=== PATIENT | female | born 1980 ===

== ENCOUNTER 2020-04-14 10:00 | Outpatient (RCR) | payer OTHER, SELFPAY ==
--- NOTE | 2020-03-17 10:27 | MHC.PT.EP ---
[facility] [place] Office [place] Office [place] Office [address] Emi Espinoza [address] [phone] F: [phone] F: [phone] F: [phone] F: [phone] Physical Therapy Plan of Care Date of Evaluation: 03/17/20 Date of Surgery: N/A Diagnosis: M48.061 spinal stenosis of lumbar region without neurogenic claudication Assessment: pt presents to physical therapy with pain, decreased range of motion, decreased strength, impaired functional mobility, impaired postural awareness, and gait deviations. pt is a good candidate for skilled PT due to age, potential remediation of impairments, typical disease/condition progression and prognosis, comorbidities, and motivation. pt would benefit from tailored strengthening and stretching exercise program, functional training, gait training, postural re-training, neuromuscular re-education, and modalities as needed for pain. Frequency and Duration: The patient will be seen 2x/wk for 5 wks Short Term Goals: pt will be min A w/ HEP d/t L hand impairments to promote self-management of condition. pt will improve lumbar flexion by 15% to facilitate ease in reaching for objects on the ground. Mcfp Goals: pt will report statistically significant improvement in self-reported outcome measure, Chuck, to facilitate return to PLOF. pt will report <1/10 low back pain w/ standing for >30 min to facilitate return to ADLs. Treatment Plan: Modalities to reduce pain, spasms and effusion. Manual therapy to restore motion and function. Therapeutic exercise to improve strength and flexibility. Neuromuscular re-education for posture and balance. Therapeutic activities to return to functional activities of daily living. Please sign and return to therapist. Thank you for your referral.
--- NOTE | 2020-04-14 10:57 | MHC.PT.EP ---
[facility] [place] Office [place] Office [place] Office [address] Emi Espinoza [address] [phone] F: [phone] F: [phone] F: [phone] F: [phone] Physical Therapy Plan of Care Date of Evaluation: 04/14/20 Date of Surgery: N/A Diagnosis: M48.061 spinal stenosis of lumbar region without neurogenic claudication Assessment: pt presents to physical therapy with pain, decreased range of motion, decreased strength, impaired functional mobility, impaired postural awareness, and gait deviations. pt is a good candidate for skilled PT due to age, potential remediation of impairments, typical disease/condition progression and prognosis, comorbidities, and motivation. pt would benefit from tailored strengthening and stretching exercise program, functional training, gait training, postural re-training, neuromuscular re-education, and modalities as needed for pain. Frequency and Duration: The patient will be seen 2x/wk for 5 wks Short Term Goals: pt will be min A w/ HEP d/t L hand impairments to promote self-management of condition. - GOAL MET pt will improve lumbar flexion by 15% to facilitate ease in reaching for objects on the ground. 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 - reported 11% decrease in disability pt will report <1/10 low back pain w/ standing for >30 min to facilitate return to ADLs. Treatment Plan: Modalities to reduce pain, spasms and effusion. Manual therapy to restore motion and function. Therapeutic exercise to improve strength and flexibility. Neuromuscular re-education for posture and balance. Therapeutic activities to return to functional activities of daily living. Please sign and return to therapist. Thank you for your referral.
--- NOTE | 2020-04-14 10:58 | MHC.PT.DC ---
[facility] [place] Office [place] Office [place] Office [address] Espinoza [address] [phone] F: [phone] F: [phone] F: [phone] F: [phone] Physical Therapy Discharge Report Diagnosis: M48.061 spinal stenosis of lumbar region without neurogenic claudication Date of Surgery: N/A Date of Evaluation: 03/17/20 Date of Discharge: 04/14/20 Treatments to Date: 8 Cancellations to Date: 0 No Shows to Date: 2 Discharge Status: Improved Function Independent with HEP Discharge Summary: The patient has improved in overall strength, endurance, and tolerance of therapeutic exercises and activities. She reported overall she still experiences pain but the severity is less. She is independent with her home exercise program. She is discharged from this physical therapy plan of care. Electronically signed by: Ladan Piedra PT, DPT Please sign and return to therapist. Thank you for your referral.
== END 2020-04-14 10:58 | disposition other institution (70) ==
LOC: HO.PT 10:00
PROVIDERS: Visit Provider Physician Assistant
DX: M48.061 Spinal stenosis, lumbar region without neurogenic claudication (principal)
CPT/HCPCS: 97110; 97140; 97161; 97530

== ENCOUNTER → 2020-12-17 09:02 | Outpatient (BNVA) | payer OTHER, SELFPAY | PROVIDERS: Visit Provider Advanced Practice Midwife ==

== ENCOUNTER 2021-01-05 10:52 | Outpatient (REF) | payer OTHER, SELFPAY ==
--- NOTE | ~2021-01-05 | US_ITS ---
EXAMINATION: US PELVIS CLINICAL INFORMATION: Excessive menstruation. COMPARISON: None TECHNIQUE: Ultrasound of the pelvis is performed using both transabdominal with Doppler. Patient refuses transvaginal study. FINDINGS: The uterus is 8.8 x 5 x 5.4 cm. Anteverted. The endometrial thickness is measured at 1.9 cm. Appears echogenic. The right ovary is 2 x 1.8 x 1.1 cm. Normal-appearing. The left ovary is 2.7 x 1.2 x 1.9 cm. Small simple-appearing 1.1 x 1.1 cm cyst associated. US/US pelvic and transvaginal IMPRESSION: Transabdominal only. Patient refuses transvaginal study. The endometrium is thickened here at 1.9 cm. This could be normal for a very late phase of the cycle but otherwise hyperplasia or polyp formation would need to be considered here. Recommend gynecologic consultation.
[2021-01-05 12:10] LABS: Hematocrit 38.3 % (37-47); Hemoglobin 12.2 g/dl (12.0-16.0); Mean Corpuscular HGB Conc 31.9 g/dl (31.0-35.0); Mean Corpuscular Hemoglobin 26.2 pg (27.0-33.0); Mean Corpuscular Volume 82.2 fL (80-98); Platelet Count 320 X10*3/uL (160-400); Red Blood Count 4.66 X10*6/uL (4.20-5.50); Red Cell Distribution Width 13.3 % (11.0-16.0); White Blood Count 8.2 X10*3/uL (4.8-10.8)
[2021-01-05 12:51] LABS: Thyroid Stimulating Hormone 2.09 uIU/mL (0.32-4.0)
== END 2021-01-05 10:53 | disposition home or self-care (01) ==
LOC: HO.US 10:52
PROVIDERS: PCP Physician Assistant; Visit Provider Advanced Practice Midwife
DX: N92.0 Excessive and frequent menstruation with regular cycle (principal); N92.1 Excessive and frequent menstruation with irregular cycle
CPT/HCPCS: 36415; 76830; 76856; 84443; 85027

== ENCOUNTER → 2021-01-12 15:44 | Outpatient (BNVA) | payer OTHER, SELFPAY | PROVIDERS: Visit Provider Advanced Practice Midwife | CPT/HCPCS: Q3014 ==

== ENCOUNTER 2021-01-31 08:41 | Outpatient (REF) | payer OTHER, SELFPAY ==
[2021-01-31 16:23] LABS: CT PCR NOT DETECTED (Not Detect.); NG PCR NOT DETECTED (Not Detect.)
== END 2021-01-31 08:42 | disposition home or self-care (01) ==
LOC: CF 08:41
PROVIDERS: Visit Provider Obstetrics & Gynecology
DX: N92.0 Excessive and frequent menstruation with regular cycle (principal); Z87.891 Personal history of nicotine dependence
CPT/HCPCS: 87491; 87591; 99212

== ENCOUNTER 2021-02-04 09:00 | Day surgery (SDC) | payer OTHER, SELFPAY ==
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
[2021-02-04] VITALS (8 sets, daily range): BP systolic 108–133; BP diastolic 63–69; PULSE 65–88; RESP 16–18; TEMP 36.2–36.6; O2SAT 96–100; BMI 36.4
[2021-02-04 09:35] LABS: UPreg QC Valid YES; Urine Pregnancy NEGATIVE (NEGATIVE)
[2021-02-04] MEDS: Lactated Ringers 1,000 ML 100 ML IVCONT (09:41)
--- NOTE | 2021-02-04 09:57 | MHC.SHP ---
Pre-Procedural Eval Section A Date of Service: 02/04/21 The patient is an INPATIENT: No Changes since office visit: No Cold of Flu in the past 2 weeks, No New Medical Problems, No Changes in Medication and No Patient answered all questions The History & Physical has been completed within 30 days and I have reviewed it.: Yes Section B Chief Complaint: bleeding Allergies: Allergies Allergy/AdvReac Type Severity Reaction Status Date / Time No Known Allergies Allergy Verified 01/31/21 11:17 Plan Diagnosis/Plan: Unchanged I have reviewed the history and physical and performed a pertinent physical examination on my patient. No changes have occurred unless specified.
--- NOTE | 2021-02-04 10:48 | PM.OP ---
Brief Operative Note Date of Service: 02/04/21 Pre-op diagnosis: Menometrorrhagia Post-op diagnosis: same (Menometrorrhagia, endometrial polyp) Procedure: Hysteroscopy D&C, Polypectomy Surgeon: Sushil Velasquez MD Anesthesia: MAC Was an Paper Machine Supervisor used for this Procedure?: No Estimated blood loss (mL): 0 Pathology: other (Endometrial Scrapping. Polyp) Condition: stable Disposition: PACU
--- NOTE | 2021-02-04 10:49 | W.PM.OPN ---
Operative Note Operative Note Date of Service: 02/04/21 Narrative: Preop Diagnosis: Menometrorrhagia Operation: Diagnostic Hysteroscopy, Dilataion & Curettage and polypectomy Post Op Diagnosis: Menometrorrhagia, Endometrial Polyp QBL: Minimal Anesthesia: MAC Surgeon: Sushil Velasquez MD Mechanical Intern: None Complication: None Pathology: Endometrial Scrapings, Endometrial polyp Complication: None Pathology: Endometrial Scrapings, Endometrial polyp Procedure: The patient was put in the dorsal lithotomy position, scrubbed, and draped in the usual manner. A sterile speculum was inserted in the patient's vagina. The anterior lip of the cervix was grasped with a single tooth tenaculum. The cervix was dilated up to 5 mm, then the scope was inserted in the patient's uterus. Inspection revealed endometrial polyp. The Myosure Light device was used; it was introduced through the operative channel and polypectomy done with no complications. At the end of the procedure, all instruments were taken out of the patient uterine and vaginal cavity. The single tooth tenaculum was removed and homeostasis was assured using pressure,. The patient tolerated the procedure well and was transferred to the PACU in a stable condition.
[2021-02-04] MEDS: Acetaminophen 325 MG TABLET 650 MG PO (11:10)
[2021-02-04] MEDS: Ketorolac Tromethamine 15 MG/ML VIAL IVPUSH (11:10)
[2021-02-04] MEDS: oxyCODONE HCl Immed Release 5 MG TABLET PO (11:10)
== END 2021-02-04 12:12 | disposition home or self-care (01) ==
PROVIDERS: PCP Physician Assistant; Visit Provider Obstetrics & Gynecology
PROC: 0UDB8ZZ Extraction of Endometrium, Via Natural or Artificial Opening Endoscopic (ICD-10-PCS; CPT 58558; principal; 2021-02-04 10:40)
DX: N92.0 Excessive and frequent menstruation with regular cycle (principal); N84.0 Polyp of corpus uteri; N83.292 Other ovarian cyst, left side; N85.4 Malposition of uterus; Z98.51 Tubal ligation status; Z87.891 Personal history of nicotine dependence
CPT/HCPCS: 58558; 81025; 88305; J1100; J1885; J2250; J2405; J3010

== ENCOUNTER → 2021-02-17 12:46 | Outpatient (BNVA) | payer OTHER, SELFPAY | PROVIDERS: Visit Provider Obstetrics & Gynecology | DX: Z48.816 Encounter for surgical aftercare following surgery on the genitourinary system (principal); Z90.710 Acquired absence of both cervix and uterus | CPT/HCPCS: 99212 ==

== ENCOUNTER 2021-03-09 09:03 | Outpatient (REF) | payer OTHER, SELFPAY ==
--- NOTE | ~2021-03-09 | MM_ITS ---
EXAMINATION: MM SCREENING DIGITAL BREAST TOMOSYNTHESIS, BILATERAL CLINICAL INFORMATION: Screening. Asymptomatic. The lifetime risk of breast cancer based on the Tyrer-Cuzick Model is 8%. COMPARISON: Mammography: 02/05/2019, outside mammography 05/06/2017 ([place], [place]). TECHNIQUE: Digital breast tomosynthesis is performed in both the craniocaudal and mediolateral oblique views along with computer-aided detection (CAD). Synthesized 2D images are generated from the tomosynthesis. FINDINGS: There are scattered areas of fibroglandular density (ACR BI-RADS breast composition Category b). There are no significant masses, abnormal calcifications, or other abnormalities. Parenchymal pattern is similar to prior exam. There is no developing density or architectural abnormality. Skin contours are smooth. MM/MM tomosynthesis screening BI IMPRESSION: No mammographic evidence of malignancy. ASSESSMENT: BI-RADS 1: Negative RECOMMENDATION: Routine annual mammography screening. This patient's information was entered into a reminder system with a target due date for their next mammogram.
== END 2021-03-09 09:04 | disposition home or self-care (01) ==
LOC: HO.MAMMO 09:03
PROVIDERS: Visit Provider Physician Assistant
DX: Z12.13 Encounter for screening for malignant neoplasm of small intestine (principal)
CPT/HCPCS: 77063; 77067

== ENCOUNTER → 2021-07-28 11:57 | Outpatient (BNVA) | payer OTHER, SELFPAY | PROVIDERS: PCP Physician Assistant; Referring Provider Physician Assistant; Visit Provider Physician Assistant | DX: Z83.71 Family history of colonic polyps (principal) | CPT/HCPCS: 99202 ==

== ENCOUNTER 2021-08-30 08:06 | Day surgery (SDC) | payer OTHER, SELFPAY ==
[2021-08-25 10:51] VITALS: BMI 36.8
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
[2021-08-30 09:31] VITALS: BP 117/60; PULSE 86; RESP 16; TEMP 36.2; O2SAT 97
[2021-08-30] MEDS: Lactated Ringers 1,000 ML 100 ML IVCONT (09:51)
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
--- NOTE | 2021-08-30 10:49 | PM.OP ---
Brief Operative Note Date of Service: 08/30/21 Pre-op diagnosis: screening colonoscopy Post-op diagnosis: same Procedure: see op note Surgeon: Iman Olson MD Anesthesia: MAC Was an Special Education Supervisor used for this Procedure?: No Estimated blood loss (mL): 0 Condition: stable Disposition: PACU
--- NOTE | 2021-08-30 10:49 | W.PM.OPN ---
Operative Note Operative Note Date of Service: 08/30/21 Narrative: Operative Information Procedure Description: Colonoscopy Indication: screening colonoscopy, higher risk due to FH of polyps Anesthesia: MAC COLONOSCOPY Instrument: Olympus variable stiffness pediatric scope 190L Colonoscopy Monitoring: Vital signs and clinical assessment, continuous EKG monitoring, Pulse oximetry, Carbon Dioxide monitoring and blood pressure monitoring were done throughout the procedure. Colon withdrawal time was 14 minutes. Procedure: The patient was placed in the RIGHT lateral decubitis position due to arm deformity and pre-procedure medications were administered. After a digital rectal examination of the ano-rectum, the video colonoscope was inserted into the rectum and advanced through the colon to the cecum/TI. The colonoscope was slowly withdrawn in a retrograde panoramic fashion and the colon mucosa was carefully examined including a retroflexed view of the rectum. Findings and interventions are described below. Procedure Difficulty: easy Findings: Terminal Ileum-normal, bx taken Cecum: many prominent lymphoid follicles noted, bx taken due to this Ascending Colon: 10-12 mm sessile polyp removed with cold snare and x 1 clip for hemostasis Transverse Colon -normal Descending Colon:normal Sigmoid Colon: normal Rectum: Retroflexion with small internal hemorrhoids, grade I Anorectum - normal Colon preparation: [place] Bowel Preparation Scale Right colon; 3 Transverse colon: 2 Left colon; 2 (0 = Unprepared colon segment with mucosa not seen due to solid stool that cannot be cleared. 1 = Portion of mucosa of the colon segment seen, but other areas of the colon segment not well seen due to staining, residual stool and/or opaque liquid. 2 = Minor amount of residual staining, small fragments of stool and/or opaque liquid, but mucosa of colon segment seen well. 3 = Entire mucosa of colon segment seen well with no residual staining, small fragments of stool or opaque liquid) Impression and Post Procedure Diagnosis: polyp internal hemorrhoids prominent lymhoid follicles cecum Plan: High fiber diet leaflet Avoid straining at stool, epsom salts and sitz bath, anusol supps or cream Repeat Colonoscopy in 5 years due to FH of polyps or earlier if clinically indicated Above findings were reviewed with the patient and relevant handouts were provided if indicated.
[2021-08-30 11:16] VITALS: BP 98/56; PULSE 84; RESP 16; TEMP 36.1; O2SAT 97
[2021-08-30 11:31] VITALS: BP 110/65; PULSE 75; RESP 16; O2SAT 98
[2021-08-30 11:46] VITALS: BP 124/82; PULSE 77; RESP 16; TEMP 36.1; O2SAT 96
== END 2021-08-30 12:27 | disposition home or self-care (01) ==
PROVIDERS: PCP Physician Assistant; Visit Provider Internal Medicine Gastroenterology
PROC: 0DJD8ZZ Inspection of Lower Intestinal Tract, Via Natural or Artificial Opening Endoscopic (ICD-10-PCS; CPT 45378; principal; 2021-08-30 10:10)
DX: Z12.11 Encounter for screening for malignant neoplasm of colon (principal); Z83.71 Family history of colonic polyps; D12.2 Benign neoplasm of ascending colon; K63.89 Other specified diseases of intestine; K64.0 First degree hemorrhoids; K21.9 Gastro-esophageal reflux disease without esophagitis; Z79.899 Other long term (current) drug therapy; Z79.1 Long term (current) use of non-steroidal anti-inflammatories (NSAID); Z98.890 Other specified postprocedural states; Z87.891 Personal history of nicotine dependence
CPT/HCPCS: 45385; 45380; 88305

== ENCOUNTER → 2021-09-14 11:25 | Outpatient (BNVA) | payer OTHER, SELFPAY | PROVIDERS: PCP Physician Assistant; Referring Provider Physician Assistant; Visit Provider Physician Assistant | DX: D12.2 Benign neoplasm of ascending colon (principal); K64.9 Unspecified hemorrhoids; Z98.890 Other specified postprocedural states | CPT/HCPCS: 99212 ==

== ENCOUNTER 2022-03-16 09:48 | Outpatient (REF) | payer OTHER, SELFPAY ==
--- NOTE | ~2022-03-16 | MM_ITS ---
EXAMINATION: MM SCREENING DIGITAL BREAST TOMOSYNTHESIS, BILATERAL CLINICAL INFORMATION: Screening. Asymptomatic. The lifetime risk of breast cancer based on the Tyrer-Cuzick Model is 8.6%. COMPARISON: Mammography: March 09, 2021 and studies dating back to May 10, 2017 TECHNIQUE: Digital breast tomosynthesis is performed in both the craniocaudal and mediolateral oblique views along with computer-aided detection (CAD). Synthesized 2D images are generated from the tomosynthesis. FINDINGS: The breasts are heterogeneously dense, which may obscure small masses (ACR BI-RADS breast composition Category c). There are no significant masses, abnormal calcifications, or other abnormalities. MM/MM tomosynthesis screening BI IMPRESSION: No significant changes from prior exam. ASSESSMENT: BI-RADS 1: Negative RECOMMENDATION: Routine annual mammography screening. This patient's information was entered into a reminder system with a target due date for their next mammogram.
== END 2022-03-16 09:49 | disposition home or self-care (01) ==
LOC: HO.MAMMO 09:48
PROVIDERS: PCP Physician Assistant; Visit Provider Physician Assistant
DX: Z12.31 Encounter for screening mammogram for malignant neoplasm of breast (principal)
CPT/HCPCS: 77063; 77067

== ENCOUNTER 2022-07-31 17:36 | Emergency (ER) | payer OTHER, SELFPAY ==
[2022-07-31 18:34] VITALS: BP 120/66; PULSE 76; RESP 18; TEMP 36.4; O2SAT 98; BMI 35.8
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
== END 2022-07-31 18:44 | disposition home or self-care (01) ==
PROVIDERS: Emergency Provider Emergency Medicine Emergency Medical Services; PCP Physician Assistant
DX: S01.85XA Open bite of other part of head, initial encounter (principal); W54.0XXA Bitten by dog, initial encounter; Y93.9 Activity, unspecified; Y92.9 Unspecified place or not applicable; Y99.9 Unspecified external cause status; Z79.899 Other long term (current) drug therapy
CPT/HCPCS: 99282; 99283

== ENCOUNTER 2022-11-14 07:14 | Outpatient (REF) | payer OTHER, SELFPAY ==
[2022-11-14 08:58] LABS: Alanine Aminotransferase 36 U/L (0-31); Albumin Level 4.1 g/dL (3.5-5.0); Alkaline Phosphatase 83 U/L (39-117); Anion Gap 12 (12-20); Aspartate Amino Transferase 29 U/L (5-31); Bilirubin Total 0.4 mg/dL (0.0-1.0); Blood Urea Nitrogen 11 mg/dL (9-16); Calcium 9.4 mg/dL (8.4-10.2); Carbon Dioxide 22 mmol/L (22-29); Chloride 109 mmol/L (96-108); Estimated Glomerular Filt Rate > 60; Glucose Fasting 87 mg/dL (60-99); Potassium 3.6 mmol/L (3.3-5.1); Sodium 139 mmol/L (135-145); Total Protein 7.9 g/dL (6.5-8.0)
[2022-11-14 09:14] LABS: Vitamin D 25-OH Total 21.2 ng/mL (>30)
[2022-11-14 09:18] LABS: Folate 8.8 ng/mL (> or = 4.0); Vitamin B12 312 pg/mL (200-900)
[2022-11-18 13:23] LABS: Vitamin B1 8 nmol/L (8-30)
== END 2022-11-14 07:15 | disposition home or self-care (01) ==
LOC: HO.LAB 07:14
PROVIDERS: Visit Provider Nurse Practitioner Family
DX: R20.0 Anesthesia of skin (principal); Z13.21 Encounter for screening for nutritional disorder
CPT/HCPCS: 36415; 80053; 82306; 82607; 82746; 84425

== ENCOUNTER 2022-12-04 07:42 | Outpatient (REF) | payer OTHER, SELFPAY ==
--- NOTE | ~2022-12-04 | XR_ITS ---
EXAMINATION: XR SHOULDER, RIGHT CLINICAL INFORMATION: Pain in right shoulder COMPARISON: None available. TECHNIQUE: AP external rotation, Grashey, scapular Y, and axillary views of the right shoulder. FINDINGS: The bones and soft tissues are normal. No fracture. Glenohumeral and acromioclavicular alignment is anatomic with normal joint space. No abnormal soft tissue calcifications. XR/XR shoulder RT min 2V IMPRESSION: Unremarkable right shoulder
== END 2022-12-04 07:43 | disposition home or self-care (01) ==
LOC: HO.XRAY 07:42
PROVIDERS: PCP Physician Assistant; Visit Provider Nurse Practitioner Family
DX: M25.511 Pain in right shoulder (principal)
CPT/HCPCS: 73030

== ENCOUNTER 2022-12-11 10:25 | Outpatient (AMB) | payer OTHER, SELFPAY ==
[2022-12-11 10:27] VITALS: BP 130/72; PULSE 81; O2SAT 98; BMI 36.5
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
== END 2022-12-11 11:27 | disposition home or self-care (01) ==
PROVIDERS: PCP Physician Assistant; Visit Provider Nurse Practitioner Family
DX: M25.511 Pain in right shoulder (principal); R20.0 Anesthesia of skin
CPT/HCPCS: 99213

== ENCOUNTER 2022-12-21 08:30 | Outpatient (AMB) | payer OTHER, SELFPAY ==
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
[2022-12-21 08:45] VITALS: BP 100/56; BMI 36.6
== END 2022-12-21 09:33 | disposition home or self-care (01) ==
LOC: HO.HWS 08:30
PROVIDERS: PCP Physician Assistant; Visit Provider Advanced Practice Midwife
DX: Z01.419 Encounter for gynecological examination (general) (routine) without abnormal findings (principal); N92.0 Excessive and frequent menstruation with regular cycle; N89.8 Other specified noninflammatory disorders of vagina
CPT/HCPCS: 99396

== ENCOUNTER 2022-12-21 08:30 | Outpatient (REF) | payer OTHER, SELFPAY ==
[2022-12-21 09:55] LABS: MANUAL DIFF FLAG NO
[2022-12-21 10:30] LABS: Basophils Percent Auto 0.3 % (0-2); Eosinophils Absolute Auto 0.4 X10*3/uL (0.0-0.4); Eosinophils Percent Auto 3.6 % (0-4); Hematocrit 37.7 % (37.0-47.0); Imm Gran Abs Auto 0.05 X10*3/uL (0.00-0.03); Imm Gran Pct Auto 0.5 % (0.0-0.4); Lymphocytes Absolute Auto 2.4 X10*3/uL (1.2-4.9); Lymphocytes Percent Auto 23.8 % (20-40); Mean Corpuscular HGB Conc 31.8 g/dl (31.0-35.0); Mean Corpuscular Hemoglobin 26.2 pg (27.0-33.0); Mean Corpuscular Volume 82.3 fL (80.0-98.0); Mean Platelet Volume 9.2 fL (9.4-12.3); Monocytes Absolute Auto 0.7 X10*3/uL (0.1-1.2); Monocytes Percent Auto 6.6 % (2-11); Neutrophils Absolute Auto 6.5 x10*3/uL (2.0-8.3); Neutrophils Percent Auto 65.2 % (45-73); Platelet Count 353 X10*3/uL (160-400); Red Blood Count 4.58 X10*6/uL (4.20-5.50); Red Cell Distribution Width 13.6 % (11.0-16.0)
[2022-12-21 11:24] LABS: Thyroid Stimulating Hormone 3.28 uIU/mL (0.32-4.0)
[2022-12-21 18:43] LABS: CT PCR NOT DETECTED (Not Detect.); NG PCR NOT DETECTED (Not Detect.)
[2022-12-22 09:37] LABS: BV Int Neg Control Negative (Negative); BV Int Pos Control Positive (Positive)
== END 2022-12-21 08:31 | disposition home or self-care (01) ==
LOC: HO.LAB 08:30
PROVIDERS: PCP Physician Assistant; Visit Provider Advanced Practice Midwife
DX: N89.8 Other specified noninflammatory disorders of vagina (principal); N92.1 Excessive and frequent menstruation with irregular cycle; N92.0 Excessive and frequent menstruation with regular cycle
CPT/HCPCS: 0353U; 84443; 85025; 87480; 87510; 87660

== ENCOUNTER 2022-12-21 09:29 | Outpatient (REF) | payer OTHER, SELFPAY | END 2022-12-21 09:30 | disposition home or self-care (01) | LOC: HO.LNP 09:29 | PROVIDERS: Visit Provider Advanced Practice Midwife | DX: Z13.89 Encounter for screening for other disorder (principal) ==

== ENCOUNTER 2022-12-29 10:49 | Outpatient (REF) | payer OTHER, SELFPAY ==
--- NOTE | ~2022-12-29 | US_ITS ---
EXAMINATION: US PELVIS CLINICAL INFORMATION: Excessive and frequent menstruation. Last menstrual period 11/30/2022. COMPARISON: Pelvic ultrasound 01/05/2021. TECHNIQUE: Ultrasound of the pelvis is performed using both transabdominal and transvaginal transducers along with Doppler. Transvaginal imaging is performed due to inadequate visualization transabdominally. FINDINGS: Uterus: The uterus is anteverted and measures 9.4 x 5.3 x 5.5 cm. The uterus is heterogeneous. The double wall endometrial thickness is 12 mm. There is a 1.3 x 0.7 x 1.5 cm fibroid. Nabothian cysts present in the cervix. Adnexa: Bilateral ovaries are unremarkable, although visualization limited due to bowel gas. There is no pelvic ascites or fluid collection. Right ovary measures 2.0 x 1.4 x 1.5 cm, volume 2.2 mL. Left ovary measures 3.1 x 2.1 x 2.5 cm, volume 8.4 mL. US/US pelvic and transvaginal IMPRESSION: 1. There is a 1.5 cm uterine fibroid. Heterogeneous uterus. 2. Endometrium is echogenic with thickness of 12 mm. Correlation with menstrual history recommended to determine further management. 3. Bilateral ovaries are grossly unremarkable, although visualization limited due to bowel gas.
== END 2022-12-29 10:50 | disposition home or self-care (01) ==
LOC: HO.US 10:49
PROVIDERS: Visit Provider Advanced Practice Midwife
DX: N92.0 Excessive and frequent menstruation with regular cycle (principal)
CPT/HCPCS: 76830; 76856

== ENCOUNTER 2023-01-17 10:16 | Outpatient (REF) | payer OTHER, SELFPAY ==
--- NOTE | 2023-01-17 10:18 | EMG_ITS ---
Please see scanned EMG / Nerve Conduction Report. MTDD
== END 2023-01-17 10:17 | disposition home or self-care (01) ==
LOC: HO.NEURO 10:16
PROVIDERS: Visit Provider Nurse Practitioner Family
DX: R20.0 Anesthesia of skin (principal)
CPT/HCPCS: 95885; 95910

== ENCOUNTER 2023-02-02 08:28 | Outpatient (AMB) | payer OTHER, SELFPAY ==
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
[2023-02-02 08:52] VITALS: BP 120/74; BMI 36.3
== END 2023-02-02 09:08 | disposition home or self-care (01) ==
PROVIDERS: PCP Physician Assistant; Visit Provider Advanced Practice Midwife
DX: N92.0 Excessive and frequent menstruation with regular cycle (principal); Z71.2 Person consulting for explanation of examination or test findings; Z32.02 Encounter for pregnancy test, result negative
CPT/HCPCS: 99212

== ENCOUNTER → 2023-02-02 08:28 | Outpatient (BNVA) | payer OTHER, SELFPAY | PROVIDERS: PCP Physician Assistant; Visit Provider Advanced Practice Midwife | DX: N92.0 Excessive and frequent menstruation with regular cycle (principal); Z71.2 Person consulting for explanation of examination or test findings | CPT/HCPCS: 81025; 99212 ==

== ENCOUNTER 2023-02-08 10:09 | Outpatient (AMB) | payer OTHER, SELFPAY ==
[2023-02-08 10:11] VITALS: BP 128/72; PULSE 75; O2SAT 98; BMI 36.5
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
== END 2023-02-08 11:08 | disposition home or self-care (01) ==
PROVIDERS: Visit Provider Physician Assistant
DX: Z00.00 Encounter for general adult medical examination without abnormal findings (principal); E66.09 Other obesity due to excess calories; Z68.34 Body mass index [BMI] 34.0-34.9, adult; G56.01 Carpal tunnel syndrome, right upper limb
CPT/HCPCS: 99396

== ENCOUNTER 2023-02-22 10:04 | Outpatient (REF) | payer OTHER, SELFPAY | END 2023-02-22 10:05 | disposition home or self-care (01) | LOC: HO.LNP 10:04 | PROVIDERS: PCP Physician Assistant; Visit Provider Advanced Practice Midwife | DX: N92.0 Excessive and frequent menstruation with regular cycle (principal); Z30.430 Encounter for insertion of intrauterine contraceptive device; Z32.02 Encounter for pregnancy test, result negative | CPT/HCPCS: 58100; 58300; 81025; 88305; J7298 ==

== ENCOUNTER 2023-02-22 10:04 | Outpatient (AMB) | payer OTHER, SELFPAY ==
[2023-02-22 10:08] VITALS: BP 114/64; BMI 36.5
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
== END 2023-02-22 10:52 | disposition home or self-care (01) ==
PROVIDERS: PCP Physician Assistant; Visit Provider Advanced Practice Midwife
DX: N92.0 Excessive and frequent menstruation with regular cycle (principal); Z30.430 Encounter for insertion of intrauterine contraceptive device; Z32.02 Encounter for pregnancy test, result negative
CPT/HCPCS: 58100; 58300

== ENCOUNTER 2023-03-09 08:03 | Outpatient (AMB) | payer OTHER, SELFPAY ==
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
[2023-03-09 08:08] VITALS: BMI 36.5
== END 2023-03-09 08:36 | disposition home or self-care (01) ==
PROVIDERS: PCP Physician Assistant; Visit Provider Physician Assistant
DX: G56.01 Carpal tunnel syndrome, right upper limb (principal)
CPT/HCPCS: 99204

== ENCOUNTER → 2023-03-09 08:03 | Outpatient (BNVA) | payer OTHER, SELFPAY | PROVIDERS: PCP Physician Assistant; Visit Provider Physician Assistant ==

== ENCOUNTER 2023-03-22 10:17 | Outpatient (REF) | payer OTHER, SELFPAY ==
--- NOTE | ~2023-03-22 | MM_ITS ---
EXAMINATION: MM SCREENING DIGITAL BREAST TOMOSYNTHESIS, BILATERAL CLINICAL INFORMATION: Screening. Asymptomatic. COMPARISON: Mammography: This study is compared with prior exams dating back to 2019. TECHNIQUE: Digital breast tomosynthesis is performed in both the craniocaudal and mediolateral oblique views along with computer-aided detection (CAD). Synthesized 2D images are generated from the tomosynthesis. FINDINGS: There are scattered areas of fibroglandular density (ACR BI-RADS breast composition Category b). There is a focal asymmetry of the upper outer quadrant of the right breast at middle depth. Further mammographic and targeted sonographic evaluation revised. In the left breast, there are no significant masses, abnormal calcifications, or other abnormalities. MM/MM tomosynthesis screening BI IMPRESSION: Focal asymmetry of right breast warrants additional mammographic and targeted sonographic evaluation. No mammographic signs of malignancy left breast. ASSESSMENT: BI-RADS BI-RADS 0 - Incomplete: Needs additional Imaging. RECOMMENDATION: 1. Additional views of the right breast. 2. Targeted ultrasound if warranted after review of the additional views. 3. Radiology department staff will contact the patient for additional imaging. Additional Imaging required This examination should not preclude the clinical evaluation of a suspicious palpable abnormality. This patient's information was entered into a reminder system with a target due date for their next mammogram.
== END 2023-03-22 10:18 | disposition home or self-care (01) ==
LOC: HO.MAMMO 10:17
PROVIDERS: PCP Physician Assistant; Visit Provider Physician Assistant
DX: Z12.31 Encounter for screening mammogram for malignant neoplasm of breast (principal)
CPT/HCPCS: 77063; 77067

== ENCOUNTER → 2023-03-22 10:30 | Outpatient (BNV) | payer OTHER, SELFPAY | PROVIDERS: PCP Physician Assistant; Visit Provider Radiology Diagnostic Radiology | DX: Z12.31 Encounter for screening mammogram for malignant neoplasm of breast (principal) | CPT/HCPCS: 77063; 77067 ==

== ENCOUNTER 2023-04-17 12:42 | Outpatient (AMB) | payer OTHER, SELFPAY ==
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
[2023-04-17 12:47] VITALS: BMI 36.5
== END 2023-04-17 13:45 | disposition home or self-care (01) ==
PROVIDERS: PCP Physician Assistant; Visit Provider Orthopaedic Surgery
DX: G56.01 Carpal tunnel syndrome, right upper limb (principal); M62.522 Muscle wasting and atrophy, not elsewhere classified, left upper arm
CPT/HCPCS: 99214

== ENCOUNTER → 2023-04-17 12:42 | Outpatient (BNVA) | payer OTHER, SELFPAY | PROVIDERS: PCP Physician Assistant; Visit Provider Orthopaedic Surgery | DX: G56.01 Carpal tunnel syndrome, right upper limb (principal); M62.522 Muscle wasting and atrophy, not elsewhere classified, left upper arm | CPT/HCPCS: 99212 ==

== ENCOUNTER 2023-04-19 09:21 | Outpatient (AMB) | payer OTHER, SELFPAY ==
[2023-04-19 09:26] VITALS: BP 110/68; BMI 36.5
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
== END 2023-04-19 10:25 | disposition home or self-care (01) ==
PROVIDERS: PCP Physician Assistant; Visit Provider Advanced Practice Midwife
DX: Z30.431 Encounter for routine checking of intrauterine contraceptive device (principal)
CPT/HCPCS: 99212

== ENCOUNTER → 2023-04-19 09:21 | Outpatient (BNVA) | payer OTHER, SELFPAY | PROVIDERS: PCP Physician Assistant; Visit Provider Advanced Practice Midwife | DX: Z30.431 Encounter for routine checking of intrauterine contraceptive device (principal) | CPT/HCPCS: 99212 ==

== ENCOUNTER 2023-04-26 14:12 | Outpatient (REF) | payer OTHER, SELFPAY ==
--- NOTE | ~2023-04-26 | MM_ITS ---
EXAMINATION: MM DIAGNOSTIC DIGITAL BREAST TOMOSYNTHESIS, RIGHT US BREAST LIMITED, RIGHT MAMMOGRAPHY: CLINICAL INFORMATION: Follow-up focal asymmetry upper outer quadrant right breast. COMPARISON: Mammography: 03/22/2023. 03/16/2022, 03/09/2021. TECHNIQUE: Digital right breast tomosynthesis is performed in the following views: Full-field 3-D right mediolateral view, and 3-D spot compression MLO and cc views. FINDINGS: There are scattered areas of fibroglandular density (ACR BI-RADS breast composition Category b). Diagnostic views demonstrate persistence of an oval circumscribed low-density mass at the approximate 12:00 axis right breast, just along the nipple line. This will be evaluated by ultrasound. No additional abnormalities identified within the right breast. ULTRASOUND: CLINICAL INFORMATION: Follow-up focal asymmetry upper outer quadrant right breast. COMPARISON: None TECHNIQUE: Targeted sonographic evaluation was performed using a high frequency linear transducer. Selected archived documentation. FINDINGS: RIGHT BREAST: There is a deep simple cyst at the 12:00 axis, 4 cm from the nipple measuring 1.0 x 1.2 x 0.5 cm. It is anechoic and circumscribed. Posterior enhancement is difficult to appreciate due to depth. No internal color Doppler flow. MM/MM tomosynthesis added views R IMPRESSION: No findings suspicious for malignancy in the right breast. Asymmetric density appears related to a deep simple cyst measuring up to 1.2 cm in the 12:00 axis. This is benign. Recommend the patient return to routine annual screening. OVERALL ASSESSMENT: Mammography: BI-RADS 2 - Benign Findings Ultrasound: BI-RADS 2 - Benign Findings RECOMMENDATION: 1 year F/U Results were provided to the patient at time of visit by the technologist. This patient's information was entered into a reminder system with a target due date for their next mammogram.
== END 2023-04-26 14:13 | disposition home or self-care (01) ==
LOC: HO.MAMMO 14:12
PROVIDERS: PCP Physician Assistant; Visit Provider Physician Assistant
DX: N64.89 Other specified disorders of breast (principal)
CPT/HCPCS: 76642; 77061; 77065

== ENCOUNTER → 2023-04-26 14:30 | Outpatient (BNV) | payer OTHER, SELFPAY | PROVIDERS: PCP Physician Assistant; Visit Provider Radiology Diagnostic Radiology | DX: N63.15 Unspecified lump in the right breast, overlapping quadrants (principal) | CPT/HCPCS: 76642; 77061; 77065 ==

== ENCOUNTER 2023-06-28 10:00 | Outpatient (RCR) | payer OTHER, SELFPAY ==
--- NOTE | 2023-06-01 16:06 | MHC.OT.OEV ---
[address] [phone] F: [phone] Occupational Therapy Evaluation Patient Name: Ambreen Anglin Diagnosis: (R) Carpal Tunnel Date of Onset: 01/2023 Date of Surgery: Attending Provider: Robb Montaño Prescribed Treatment: MD Follow Up Appointment: History of Current Condition: Patient is a 42 right dominate hand female with (L) non functional hand due to a work injury several years ago. She was referred by ISRAEL Grider for (R) Carpal Tunnel. She has a Carpal Tunnel release surgery scheduled for 07/16/2023. Significant Medical History: (L) contracted hand Precautions/Contraindications: Patient Goals: To be able to manage symptoms Hand Dominance: Right Observations: QuickDASH Score: 79.5 Prior Level of Function and Occupation Self Care, Employment, Leisure: Lives with her son Sister is her DIRECTOR OF THERAPY SERVICES min (A) self care tasks min (A) IADLs Living Situation, Family and/or Social Support: Current Level of Function and Occupation Self Care, Employment, Leisure: On disability Sister is DIRECTOR OF THERAPY SERVICES lives with son Sleep: Driving: (I) Vision: Balance: Pain Assessment Pain Score: 5 Pain Scale Used: Numeric (0 - 10) Pain Location and Description: (R)shoulder- 5/10 at rest, in the morning 8/10, squeezing tight (R)wrist- cramping in fingers 9/10 in the morning Aggravating Factors: Alleviating Factors: Skin and Soft Tissue Assessment Skin and Soft Tissue: Atrophy Contracture Nail Changes Swelling Comments: (L)hand and wrist (R) WFLs Nerve assessment Ulnar Nerve: Median Nerve: WNL Radial Nerve: Comments: Tested on (R) side: Phalen's Test (-) Tinel's Test (-) Sensory Assessment Temperature: WFL Light Touch: WFL Proprioception: WFL Vibration: Comments: (R)hand Edema Assessment Upper Extremity: Left Impaired Lower Extremity: Comments: Noted edema Dexterity Assessment Dexterity: WNL Comments: Functional Dexterity Test 24.08seconds Special Tests Comments: Speed's (-) Empty can Test (-) AROM(PROM) Strength Cervical Cervical Flexion: Cervical Extension: Cervical Lateral Flexion: Cervical Rotation: Comments: Shoulder Flexion: 90* Extension: Abduction: Internal Rotation: External Rotation: Comments: shoulder flexion limited due to pain Flexion: Extension: Abduction: Internal Rotation: External Rotation: Comments: Elbow Flexion: Extension: Pronation: Supination: Comments: WFL Flexion: 4-/5 Extension: 4-/5 Pronation: Supination: Comments: Wrist Flexion: Extension: Ulnar Deviation: Radial Deviation: Comments: WFL Flexion: 4-/5 Extension: 4-/5 Ulnar Deviation: Radial Deviation: Comments: Thumb Thumb CMC Flexion: Thumb MCP Flexion: Thumb IP Flexion: Radial Abduction: Palmar Abduction: [place] (K[place]andji 0-10): Comments: WFL Digits Index MCP: PIP: DIP: Long MCP: PIP: DIP: Ring MCP: PIP: DIP: Small MCP: PIP: DIP: Comments: WFL Gross Grasp: (R)55lbs. Lateral Pinch: 3 Two-Point Pinch: 6 Three-Jaw Shay: 2 Comments: Patient Education Primary Language: Waterfront Director Required: Yes Current Knowledge: Understands information with skills for self-management Teaching Method: Demonstration Handouts Education Needs Identified on Evaluation: Exercise Pain How did patient/family demonstrate learning? Patient demonstrates Barriers to Learning: None Readiness for Learning: Accepting Who was educated? Patient Comments: Plan of Care Assessment: Patient is a 42 right dominate hand female with (L) non functional hand due to a work injury several years ago. She was referred by ISRAEL Grider for (R) Carpal Tunnel. She has a Carpal Tunnel release surgery scheduled for 07/16/2023. She reports numbness and tingling in the fingers when she wakes in the morning and a radiating pain from her forearm to her shoulder. She also states when she is carrying something she feels like she is going to let go of it. She reports 5/10 pain at rest and 9/10 pain during activity. Phalen's and Tinel's were (-). Functional Dexterity Score was WNL as she scored 24.08 seconds and demonstrated the ability to perform finger opposition. Bung Remover strength was 55 lbs. indicating strength WFLs for patient's age and gender. Patient also reported shoulder pain near the biceps. Provocative shoulder testing was (-). Quick DASH score= 79.5 indicating patient's perceived upper extremity impairment while performing self care tasks such as washing hair. Based on initial evaluation patient's current level of function in mod (A) upper body self care tasks as patient presents with impaired functional activity tolerance as she reports 5/10 pain at rest and 9/10 pain, impaired (R) shoulder ROM and impaired performance during self care tasks. It is recommended that patient receive skilled OT in order to decrease pain, increase ROM and achieve patient's prior level of function. Thank you for your referral. STG Duration: 2 weeks Short Term Goals: Patient will report 2/10 pain in wrist while at rest Patient will be (I) with donning/doffing night splint Patient will be (I) with wearing schedule of splint Patient will increase shoulder range of motion to 120* LTG Duration: 4 weeks Penitentiary Goals: Patient will report 0/10 pain in (R) wrist while at rest Patient will have increased (R)shoulder flexion to at least 150* Patient will be (I) with HEP patient will be (I) with self management of carpal tunnel symptoms Patient's Quick DASH score will be at least 50% or lower indicating overall improvement of (R)upper extremity Frequency and Duration: The patient will be seen 2x a week for 4 weeks Treatment Plan: Therapeutic Exercise Therapeutic Activity Home Exercise Program Splinting Patient Education Edema Control ADL Training Paraffin Fluidotherapy MHP Cold Packs Soft Tissue Mobilization Kinesiotaping OT eval and treat Electronically Signed By: Gabbi Feliz Reviewed/agree with student documentation: Therapist: Please sign and return to therapist, Thank you for your referral.
--- NOTE | 2023-06-28 10:40 | MHC.OT.DC ---
[address] [phone] F: [phone] Occupational Therapy Discharge Note Patient Name: Ambreen Anglin Provider: Robb Montaño Diagnosis: (R) Carpal Tunnel Date of Surgery: Date of Evaluation: 06/01/23 Date of Discharge: 06/28/23 Treatments to Date: 7 Cancellations to Date: No Shows to Date: 1 Discharge Status: Independent with HEP Discharge Summary: NO CHANGE IN PAIN AT CARPAL WRIST AND MILD LATERAL ELBOW PAIN WITH BIOINFORMATICS SCIENTIST. IMPROVED ELBOW PAIN AND BIOINFORMATICS SCIENTIST STRENGTH WITH CFB ON. Pt IS INDEP WITH HER HEP FOR SELF MANAGEMENT OF LATERAL ELBOW PAIN AND CTS. HER SISTER/ DOPE FIRER WILL ASSIST NEEDED POST OP FOR CTR SCHEDULED FOR 07/16/23. CONTINUED SKILLED OT NOT NEEDED AT THIS TIME Electronically Signed By: KOKO SOTELO OT CHT CLT Reviewed/agree with student documentation: N/A Therapist: Please Sign and return to therapist, thank you for your referral.
== END 2023-06-28 10:40 | disposition home or self-care (01) ==
LOC: HO.OT 10:00
PROVIDERS: PCP Physician Assistant; Visit Provider Physician Assistant
DX: G56.01 Carpal tunnel syndrome, right upper limb (principal)
CPT/HCPCS: 97035; 97110; 97140; 97166

== ENCOUNTER 2023-07-16 10:14 | Day surgery (SDC) | payer OTHER, SELFPAY ==
--- NOTE | 2023-07-16 07:55 | W.PM.OPN ---
Operative Note Operative Note Date of Service: 07/16/23 Narrative: Preop diagnosis: 1. Right Carpal tunnel syndrome Postop diagnosis: same Procedure: 1. Right Carpal tunnel release Surgeon: Meaghan Ray MD Anesthesia: local block using 1% lidocaine with epinephrine Findings: Thickened transverse carpal ligament. EBL: Less than 5 mL Specimens: None Complications: None Disposition: Brought to recovery room in stable condition Plan: Follow-up for 10-14 days for wound check and suture removal Indications: The patient is 43 years old, with right carpal tunnel syndrome that has been unresponsive to nonoperative management. The risks and benefits of operative treatment including but not limited to risk of damage to blood vessels, nerves, tendons, infection, persistent pain, persistent symptoms, or possible need for additional surgery were discussed with the patient and the patient wishes to proceed with surgery. Procedure: Once consent was obtained a local block was performed using a combination of 1% lidocaine with epinephrine. The patient was then brought back to the operating suite and placed on the operative table in supine position. The right upper extremity was prepped and draped in a standard surgical fashion. Once assured that we had a good block, a 2.0 cm longitudinal incision was made centered over the carpal tunnel. The incision was made through the skin to the subcutaneous tissues using a #15 blade. Dissection was made down to the level of the transverse carpal ligament with care being taken to protect the palmar cutaneous nerve. Once the transverse carpal ligament was clearly visualized, a longitudinal incision was made in the transverse carpal ligament 1st using a #15 blade, then using tenotomy scissors under direct visualization. Care was taken to look for and protect the motor branch of the median nerve when seen in this area. Once satisfied with our carpal tunnel release the wound was copiously irrigated with normal saline and hemostasis was obtained with a brief period of local pressure. The skin edges were reapproximated with some 5.0 nylon suture material and a sterile dressing was applied. The patient appears to have tolerated the procedure well and with no complications. All digits were well vascularized at the conclusion of the case.
[2023-07-16 11:41] VITALS: BMI 36.4
--- NOTE | 2023-07-16 13:56 | MHC.SHP ---
Pre-Procedural Eval Section A - 24 Hr Update-Section A only Date of Service: 07/16/23 The patient is an INPATIENT: No Changes since office visit: No Cold of Flu in the past 2 weeks, No New Medical Problems, No Changes in Medication and No Patient answered all questions The patient has been examined within 24 hours of the surgical procedure. The History & Physical has been completed within 30 days and I have reviewed it.: Yes Section B - Complete if H&P > 30 days Chief Complaint: Carpal tunnel syndrome, right upper limb Allergies: Allergies Allergy/AdvReac Type Severity Reaction Status Date / Time octopus Allergy Mild Rash Verified 04/19/23 09:26 Plan I have reviewed the history and physical and performed a pertinent physical examination on my patient. No changes have occurred unless specified. Time Spent With Patient Time: Total time managing care of this patient today ____ minutes.
[2023-07-16 15:00] VITALS: BP 122/53; PULSE 76; RESP 16; TEMP 36.6; O2SAT 98
== END 2023-07-16 15:15 | disposition home or self-care (01) ==
PROVIDERS: PCP Physician Assistant; Visit Provider Orthopaedic Surgery
PROC: (CPT 64721; principal; 2023-07-16 12:30)
DX: G56.01 Carpal tunnel syndrome, right upper limb (principal); R20.0 Anesthesia of skin; M25.511 Pain in right shoulder; Z87.891 Personal history of nicotine dependence; Z98.890 Other specified postprocedural states
CPT/HCPCS: 64721

== ENCOUNTER → 2023-07-16 10:14 | Outpatient (BNV) | payer OTHER, SELFPAY | PROVIDERS: PCP Physician Assistant; Visit Provider Orthopaedic Surgery | DX: G56.01 Carpal tunnel syndrome, right upper limb (principal) | CPT/HCPCS: 64721 ==

== ENCOUNTER 2023-07-31 13:38 | Outpatient (AMB) | payer OTHER, SELFPAY ==
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
[2023-07-31 14:11] VITALS: BMI 36.3
== END 2023-07-31 15:44 | disposition home or self-care (01) ==
PROVIDERS: PCP Physician Assistant; Visit Provider Orthopaedic Surgery
DX: G56.01 Carpal tunnel syndrome, right upper limb (principal); M62.522 Muscle wasting and atrophy, not elsewhere classified, left upper arm; R20.0 Anesthesia of skin; R20.2 Paresthesia of skin
CPT/HCPCS: 99024

== ENCOUNTER → 2023-07-31 13:38 | Outpatient (BNVA) | payer OTHER, SELFPAY | PROVIDERS: PCP Physician Assistant; Visit Provider Orthopaedic Surgery | DX: G56.01 Carpal tunnel syndrome, right upper limb (principal); R20.0 Anesthesia of skin; R20.2 Paresthesia of skin; M62.522 Muscle wasting and atrophy, not elsewhere classified, left upper arm | CPT/HCPCS: 99212 ==

== ENCOUNTER 2023-09-18 11:04 | Outpatient (AMB) | payer OTHER, SELFPAY ==
[2023-09-18 11:04] VITALS: BP 118/76; PULSE 74; O2SAT 97; BMI 37.8
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
== END 2023-09-18 11:28 | disposition home or self-care (01) ==
PROVIDERS: PCP Physician Assistant; Visit Provider Physician Assistant
DX: J40 Bronchitis, not specified as acute or chronic (principal)
CPT/HCPCS: 99213

== ENCOUNTER 2023-10-02 12:21 | Outpatient (AMB) | payer OTHER, SELFPAY ==
[2023-10-02 12:32] VITALS: BMI 37.8
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
== END 2023-10-02 13:24 | disposition home or self-care (01) ==
PROVIDERS: PCP Physician Assistant; Visit Provider Orthopaedic Surgery
DX: G56.01 Carpal tunnel syndrome, right upper limb (principal); M62.522 Muscle wasting and atrophy, not elsewhere classified, left upper arm; R20.0 Anesthesia of skin; R20.2 Paresthesia of skin; M25.511 Pain in right shoulder
CPT/HCPCS: 99024

== ENCOUNTER → 2023-10-02 12:21 | Outpatient (BNVA) | payer OTHER, SELFPAY | PROVIDERS: PCP Physician Assistant; Visit Provider Orthopaedic Surgery | DX: M62.522 Muscle wasting and atrophy, not elsewhere classified, left upper arm (principal); R20.0 Anesthesia of skin; R20.2 Paresthesia of skin; M25.511 Pain in right shoulder; Z86.69 Personal history of other diseases of the nervous system and sense organs | CPT/HCPCS: 99212 ==

== ENCOUNTER 2023-11-02 08:59 | Outpatient (REF) | payer OTHER, SELFPAY ==
--- NOTE | ~2023-11-02 | XR_ITS ---
EXAMINATION: XR SHOULDER, RIGHT CLINICAL INFORMATION: Pain in the shoulder COMPARISON: X-ray the right shoulder November 2022 TECHNIQUE: 3 views of the right shoulder views of the right shoulder. FINDINGS: The bones and soft tissues are normal. No fracture. Glenohumeral and acromioclavicular alignment is anatomic with normal joint space. No abnormal soft tissue calcifications. Incidental note made of an electronic device/wires overlying the partially visualized cervical thoracic spine unchanged XR/XR shoulder RT min 2V IMPRESSION: Normal right shoulder.
== END 2023-11-02 09:00 | disposition home or self-care (01) ==
LOC: HO.HOSX 08:59
PROVIDERS: Visit Provider Physician Assistant
DX: M75.21 Bicipital tendinitis, right shoulder (principal); M25.511 Pain in right shoulder; R53.1 Weakness
CPT/HCPCS: 73030; 99212

== ENCOUNTER 2023-11-02 10:53 | Outpatient (AMB) | payer OTHER, SELFPAY ==
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
== END 2023-11-02 11:24 | disposition home or self-care (01) ==
PROVIDERS: PCP Physician Assistant; Visit Provider Physician Assistant
DX: M75.21 Bicipital tendinitis, right shoulder (principal)
CPT/HCPCS: 99214

== ENCOUNTER 2023-12-14 12:40 | Outpatient (AMB) | payer OTHER, SELFPAY ==
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
[2023-12-14 12:59] VITALS: BMI 37.8
== END 2023-12-14 13:18 | disposition home or self-care (01) ==
PROVIDERS: PCP Physician Assistant; Visit Provider Physician Assistant
DX: M75.21 Bicipital tendinitis, right shoulder (principal)
CPT/HCPCS: 99213

== ENCOUNTER → 2023-12-14 12:40 | Outpatient (BNVA) | payer OTHER, SELFPAY | PROVIDERS: PCP Physician Assistant; Visit Provider Physician Assistant | DX: M75.21 Bicipital tendinitis, right shoulder (principal) | CPT/HCPCS: 99212 ==

== ENCOUNTER 2024-02-11 10:04 | Outpatient (AMB) | payer OTHER, SELFPAY ==
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
[2024-02-11 10:14] VITALS: BP 100/68; PULSE 68; O2SAT 98; BMI 36.4
== END 2024-02-11 10:48 | disposition home or self-care (01) ==
PROVIDERS: PCP Physician Assistant; Visit Provider Physician Assistant
DX: Z00.00 Encounter for general adult medical examination without abnormal findings (principal); E66.09 Other obesity due to excess calories; Z68.36 Body mass index [BMI] 36.0-36.9, adult; R10.11 Right upper quadrant pain; Z13.1 Encounter for screening for diabetes mellitus

== ENCOUNTER → 2024-02-11 10:04 | Outpatient (BNVA) | payer OTHER, SELFPAY | PROVIDERS: PCP Physician Assistant; Visit Provider Physician Assistant | DX: Z00.00 Encounter for general adult medical examination without abnormal findings (principal); E66.09 Other obesity due to excess calories; Z68.36 Body mass index [BMI] 36.0-36.9, adult; R10.11 Right upper quadrant pain | CPT/HCPCS: 96127 ==

== ENCOUNTER 2024-02-22 07:17 | Outpatient (REF) | payer OTHER, SELFPAY ==
--- NOTE | ~2024-02-22 | US_ITS ---
EXAMINATION: US ABDOMEN COMPLETE CLINICAL INFORMATION: Right upper quadrant pain. COMPARISON: Ultrasound kidneys and bladder 02/02/2009. TECHNIQUE: Real-time imaging of the abdominal viscera. FINDINGS: PANCREAS: The pancreas appears unremarkable, without masses or ductal dilatation, with the exception of the tail which is obscured by bowel gas. ABDOMINAL AORTA: The proximal, mid, and distal segments are normal in caliber. INFERIOR VENA CAVA: Visualized portions are normal. LIVER: The liver is normal in size. The liver contour is normal. There is diffuse increased liver parenchymal echogenicity, consistent with hepatic steatosis. No focal hepatic lesion. There is no intrahepatic biliary duct dilatation seen. GALLBLADDER: Surgically absent. COMMON BILE DUCT: Normal in caliber measuring 0.6 cm in diameter. RIGHT KIDNEY: Normal. No hydronephrosis. No renal calculi or focal parenchymal lesions. The kidney measures 11.9 cm in maximum dimension. LEFT KIDNEY: No hydronephrosis or renal calculi. The kidney measures 11.5 cm in maximum dimension. A benign upper pole 0.8 cm Bosniak class I renal cyst is noted which requires no additional imaging or follow up. No solid renal masses are seen. SPLEEN: Normal. The spleen measures 11.6 cm in maximum dimension. FREE FLUID: None. US/US abdomen complete IMPRESSION: Hepatic steatosis. Electronically signed by: Octavio Duncan MD 04/05/2024 01:33 PM EST
[2024-02-22 07:39] LABS: Hemoglobin 13.5 g/dl (12.0-16.0); Mean Corpuscular HGB Conc 32.9 g/dl (31.0-35.0); Mean Corpuscular Hemoglobin 27.6 pg (27.0-33.0); Mean Corpuscular Volume 83.7 fL (80.0-98.0); Mean Platelet Volume 8.5 fL (9.4-12.3); Platelet Count 297 X10*3/uL (160-400); Red Cell Distribution Width 13.1 % (11.0-16.0); White Blood Count 7.1 X10*3/uL (4.8-10.8)
[2024-02-22 08:40] LABS: Alanine Aminotransferase 23 U/L (0-31); Albumin Level 4.1 g/dL (3.5-5.0); Alkaline Phosphatase 75 U/L (39-117); Anion Gap 12 (12-20); Aspartate Amino Transferase 18 U/L (5-31); Bilirubin Total 0.4 mg/dL (0.0-1.0); Blood Urea Nitrogen 8 mg/dL (9-16); Calcium 9.4 mg/dL (8.4-10.2); Carbon Dioxide 23 mmol/L (22-29); Chloride 109 mmol/L (96-108); Estimated Glomerular Filt Rate > 60; Glucose Fasting 101 mg/dL (60-99); Lipase 22 U/L (8-78); Sodium 140 mmol/L (135-145); Total Protein 7.9 g/dL (6.5-8.0)
[2024-02-22 08:47] LABS: Vitamin D 25-OH Total 19.2 ng/mL (>30)
== END 2024-02-22 07:18 | disposition home or self-care (01) ==
LOC: HO.US 07:17
PROVIDERS: PCP Physician Assistant; Visit Provider Physician Assistant
DX: E55.9 Vitamin D deficiency, unspecified (principal); Z13.1 Encounter for screening for diabetes mellitus; R10.11 Right upper quadrant pain
CPT/HCPCS: 36415; 76700; 80053; 82306; 83690; 85027

== ENCOUNTER 2024-02-29 10:00 | Outpatient (RCR) | payer OTHER, SELFPAY ==
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
== END 2024-06-18 10:32 | disposition home or self-care (01) ==
LOC: HO.PTCHIC 10:00
PROVIDERS: PCP Physician Assistant; Visit Provider Physician Assistant
DX: M75.21 Bicipital tendinitis, right shoulder (principal)
CPT/HCPCS: 97110; 97140; 97163

== ENCOUNTER → 2024-03-20 10:30 | Outpatient (BNVA) | payer OTHER, SELFPAY | PROVIDERS: PCP Physician Assistant; Visit Provider Physician Assistant | DX: Z23 Encounter for immunization (principal) | CPT/HCPCS: 90471; 90656 ==

== ENCOUNTER → 2024-03-20 10:30 | Outpatient (AMB) | payer OTHER, SELFPAY ==
--- NOTE | 2024-03-20 10:28 | AM.OFFVISNUR ---
Intake Visit Reasons: Flu vaccine Allergies octopus Allergy (Mild, Verified 02/11/24 10:30) Rash Office Procedures Flu Questionnaire Does the patient have a severe egg allergy?: No Does the patient have severe life threatening allergies?: No Does the patient have a fever or illness today?: No Has the patient ever had Guillain-Criders Syndrome?: No Has the patient ever had any past reaction to a flu shot?: No Assessment & Plan Assessment & Plan Orders: Orders Influenza [id number] Immunization Today Z23 - Encounter for immunization Medications: New Fluarix Triv [id number] (PF) (flu vacc [id number] 6mos up(PF)) 0.5 mL IM ONCE 0.5 mL 0RF NS Z23 - Encounter for immunization
== END ==
LOC: HO.HMCH 10:30
PROVIDERS: PCP Physician Assistant; Visit Provider Physician Assistant
DX: Z23 Encounter for immunization (principal)

== ENCOUNTER 2024-05-06 10:32 | Outpatient (REF) | payer OTHER, SELFPAY | END 2024-05-06 10:33 | disposition home or self-care (01) | LOC: HO.MAMMO 10:32 | PROVIDERS: PCP Physician Assistant; Visit Provider Physician Assistant | DX: Z12.31 Encounter for screening mammogram for malignant neoplasm of breast (principal) | CPT/HCPCS: 77063; 77067 ==

== ENCOUNTER → 2024-05-06 10:45 | Outpatient (BNV) | payer OTHER, SELFPAY | PROVIDERS: PCP Physician Assistant; Visit Provider Internal Medicine | DX: Z12.31 Encounter for screening mammogram for malignant neoplasm of breast (principal) | CPT/HCPCS: 77063; 77067 ==

== ENCOUNTER 2024-06-18 09:21 | Outpatient (AMB) | payer OTHER, SELFPAY ==
[2024-06-18 10:06] VITALS: BP 110/74; PULSE 138; TEMP 38.6; O2SAT 95
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
== END 2024-06-18 10:50 | disposition home or self-care (01) ==
PROVIDERS: PCP Physician Assistant; Visit Provider Nurse Practitioner Family
DX: J06.9 Acute upper respiratory infection, unspecified (principal)

== ENCOUNTER 2024-06-18 09:21 | Outpatient (REF) | payer OTHER, SELFPAY ==
[2024-06-18 14:33] LABS: Influenza A PCR NEGATIVE (Negative); Influenza B PCR NEGATIVE (Negative); Resp Syncy Virus RNA Qual PCR NEGATIVE (Negative); SARS COV2 PCR INHOUSE POSITIVE (Negative)
== END 2024-06-18 09:22 | disposition home or self-care (01) ==
LOC: HO.LAB 09:21
PROVIDERS: PCP Physician Assistant; Visit Provider Nurse Practitioner Family
DX: J06.9 Acute upper respiratory infection, unspecified (principal); R09.89 Other specified symptoms and signs involving the circulatory and respiratory systems
CPT/HCPCS: 0241U; 99212

== ENCOUNTER 2024-11-11 09:35 | Outpatient (REF) | payer OTHER, SELFPAY ==
--- NOTE | ~2024-11-11 | XR_ITS ---
CLINICAL HISTORY: M79.672 - Pain in left foot 2 view left calcaneus Comparison: None provided Findings: Bones intact. No dislocations. Moderate-sized dorsal and plantar calcaneal spurs. No erosions. No radiopaque foreign body. IMPRESSION: 1. No acute findings. 2. Moderate-sized plantar and dorsal calcaneal spurs. This document has been electronically signed by: Genet Velasquez MD on 11/11/2024 22:37:17
== END 2024-11-11 09:36 | disposition home or self-care (01) ==
LOC: HO.XRAY 09:35
PROVIDERS: PCP Physician Assistant; Visit Provider Physician Assistant
DX: M79.672 Pain in left foot (principal)
CPT/HCPCS: 73650; 96127; 99212

== ENCOUNTER 2024-11-11 09:35 | Outpatient (AMB) | payer OTHER, SELFPAY ==
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
[2024-11-11 09:41] VITALS: BP 100/68; PULSE 86; TEMP 36.2; O2SAT 95; BMI 36.2
== END 2024-11-11 09:58 | disposition home or self-care (01) ==
LOC: HO.HMCH 09:36
PROVIDERS: PCP Physician Assistant; Visit Provider Physician Assistant
DX: M79.672 Pain in left foot (principal)

== ENCOUNTER → 2024-11-11 10:05 | Outpatient (BNV) | payer OTHER, SELFPAY | PROVIDERS: PCP Physician Assistant; Visit Provider Student in an Organized Health Care Education/Training Program | DX: M77.32 Calcaneal spur, left foot (principal) | CPT/HCPCS: 73650 ==

== ENCOUNTER 2025-02-11 07:50 | Outpatient (REF) | payer OTHER, SELFPAY ==
--- OUTSIDE RECORDS SUMMARY | 2025-02-11 07:56 | XMS_ITS | Clinical Summary ---
Author Organization [address] [place] [address] Address [address] [place] [address] Phone Care Team Providers Care Patient Accounting Representative Name Role Phone Robb Montaño Primary Care Provider Allergies No known active allergies Medications meloxicam (MOBIC) 15 mg tablet Take 1 tablet (15 mg total) by mouth 1 (one) time each day. 30 tablet 01/21/2025 Active Encounters Date Type Department Care Team Description 01/21/2025 10:45 AM EDT Consult Orthopedic Surgery [address] [phone] Jerry Can DPM Achilles tendinitis of left lower extremity (Primary Dx); Peroneal tendinitis of left lower extremity; Bone spur of posterior portion of left calcaneus from Last 3 Months Social History Tobacco Use Types Packs/Day Years Used Date Smoking Tobacco: Never Assessed Comments Unknown Sex and Gender Information Value Date Recorded Sex Assigned at Not on file Legal Sex Female 9:12 AM EDT Gender Identity Not on file Sexual Orientation Not on file Plan of Treatment Upcoming Encounters Date Type Department Care Team (Late st Contact Info) Description 02/18/2025 10:45 AM EDT Office Visit Orthopedic Surgery [place] [id number] [phone] Jerry Can DPM [address] [address] Health Maintenance Due Date Last Done Comments Breast Cancer Screening 1978 Hepatitis B Vaccines (1 of 3 - 19+ 3-dose series) 1997 Cervical Cancer Screening: P ap Smear 1999 Depression Screening 05/21/2024 Colorectal Cancer Screening: Colonoscopy 11/14/2024 HIV Screening 11/14/2024 Hepatitis C Screening 11/14/2024 Medicare Annual Wellness Visit 11/14/2024 Social Influencers of Health Screening 11/14/2024 COVID-19 Vaccine (3 - 2024-2 6 season) 2025 11/09/2020, 10/19/2020 Influenza Vaccine (#1) 2025 03/20/2024 DTaP,Tdap,and Td Vaccines (2 - Td or Tdap) 01/13/2029 01/13/2019 RSV Immunization Adult Patients (1 - 1-dose 75+ series) 2053 HIB Vaccines Aged Out No longer eligi ble based on patient's age to complete this topic HPV Vaccines Aged Out No longer eligi ble based on patient's age to complete this topic Hepatitis A Vaccines Aged Out No long er eligible based on patient's age to complete this topic IPV Vaccines Aged Out No longer eligi ble based on patient's age to complete this topic MMR Vaccines Aged Out No longer eligi ble based on patient's age to complete this topic Meningococcal ACWY Vaccine Aged Out N o longer eligible based on patient's age to complete this topic Meningococcal B Vaccine Aged Out No l onger eligible based on patient's age to complete this topic Pneumococcal Vaccine: Pediatrics (0 to 5 Years) and At-Risk Patients (6 to 49 Years) Aged Out No longer eligible b ased on patient's age to complete this topic RSV Immunization Patients Under 20 months Aged Out No longer eligible b ased on patient's age to complete this topic Varicella Vaccines Aged Out No longer eligible based on patient's age to complete this topic [place] [place] [address] MEDICARE Member Subscriber Plan / Payer (Ef fective 2019-Present) Name:AMBREEN ANTONIO Relation to Subscriber:Self Name:Ambreen Antonio Payer ID:[id number] Group ID:[id number] Type:Not on file Address: [address] [place] [address] Care Teams Patient Accounting Representative Relationship Specialty Start Date End Date Robb Montaño PA [address] [place] [address] PCP - General Physician 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
[2025-02-11 09:09] LABS: Alanine Aminotransferase 21 U/L (0-31); Albumin Level 4.3 g/dL (3.5-5.0); Alkaline Phosphatase 79 U/L (39-117); Anion Gap 10 (12-20); Aspartate Amino Transferase 22 U/L (5-31); Blood Urea Nitrogen 10 mg/dL (9-16); Calcium 9.0 mg/dL (8.4-10.2); Carbon Dioxide 25 mmol/L (22-29); Chloride 109 mmol/L (96-108); Estimated Glomerular Filt Rate > 60; Potassium 4.2 mmol/L (3.3-5.1); Sodium 140 mmol/L (135-145); Total Protein 7.7 g/dL (6.5-8.0)
== END 2025-02-11 07:51 | disposition home or self-care (01) ==
LOC: HO.LAB 07:50
PROVIDERS: PCP Physician Assistant; Visit Provider Physician Assistant
DX: Z00.00 Encounter for general adult medical examination without abnormal findings (principal); F41.1 Generalized anxiety disorder; R73.09 Other abnormal glucose; E55.9 Vitamin D deficiency, unspecified; M77.32 Calcaneal spur, left foot; M24.532 Contracture, left wrist; Z87.891 Personal history of nicotine dependence
CPT/HCPCS: 36415; 80053; 82306; 96127; 99396

== ENCOUNTER 2025-02-11 10:30 | Outpatient (AMB) | payer OTHER, SELFPAY ==
[2025-02-11 10:37] VITALS: BP 130/76; PULSE 85; O2SAT 98
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
== END 2025-02-11 11:09 | disposition home or self-care (01) ==
LOC: HO.HMCH 10:31
PROVIDERS: PCP Physician Assistant; Visit Provider Physician Assistant
DX: Z00.00 Encounter for general adult medical examination without abnormal findings (principal); F41.1 Generalized anxiety disorder; R73.09 Other abnormal glucose; E55.9 Vitamin D deficiency, unspecified; M77.32 Calcaneal spur, left foot; M24.532 Contracture, left wrist

== ENCOUNTER 2025-03-07 12:17 | Emergency (ER) | payer OTHER, SELFPAY ==
--- NOTE | ~2025-03-07 | XR_ITS ---
CLINICAL HISTORY: lateral pain and swelling Radiographs of the right foot, 3 views Comparison: None available Findings: No fracture or dislocation. The joint spaces are preserved without osteophytosis. Large calcaneal enthesophytes. Soft tissue swelling. Impression: No fracture. This document has been electronically signed by: Alda Pnito MD on 03/07/2025 15:12:22
--- NOTE | ~2025-03-07 | XR_ITS ---
CLINICAL HISTORY: lateral pain and swelling Radiographs of the right ankle, 3 views Comparison: None available Findings: 4 mm ossific fragment distal to the fibula which is favored to be well corticated/chronic. No definitive acute fracture. The ankle mortise is congruent. The joint spaces are preserved without osteophytosis. Large calcaneal enthesophytes. Soft tissue swelling. Impression: No definitive acute fracture. This document has been electronically signed by: Alda Pinto MD on 03/07/2025 15:12:25
[2025-03-07 12:25] VITALS: BP 145/68; PULSE 86; RESP 18; TEMP 37; O2SAT 100; BMI 36.3
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
--- OUTSIDE RECORDS SUMMARY | 2025-03-07 15:49 | XMS_ITS | Clinical Summary ---
Author Organization [address] [place] [address] Address 175 [place] [address] Phone Care Team Providers Care Credit Underwriter Name Role Phone Robb Montaño Primary Care Provider Allergies No known active allergies Medications meloxicam (MOBIC) 15 mg tablet Take 1 tablet (15 mg total) by mouth 1 (one) time each day. 30 tablet 01/21/2025 Encounters Date Type Department Care Team Description 02/18/2025 10:45 AM EDT Office Visit Orthopedic [place] [address] [phone] Jerry Can DPM Left foot pain (Primary Dx); Achilles tendinitis of left lower extremity; Bone spur of posterior portion of left calcaneus 01/21/2025 10:45 AM EDT Consult Orthopedic [facility] [address] [phone] Jerry Can DPM Achilles tendinitis of left [...] Upcoming Encounters Date Type Department Care Team ([facility] Contact Info) Description 03/09/2025 10:00 AM EDT Office Visit [place] [address] [phone] Jerry Can DPM [address] [address] Health Maintenance Due Date Last Done Comments Breast Cancer Screening 1980 Colorectal Cancer Screening: Colonoscopy 1980 Hepatitis B Vaccines (1 of 3 - 19+ 3-dose series) 1997 Cervical Cancer Screening: P ap Smear 1999 Depression Screening 05/21/2024 HIV Screening 11/14/2024 Hepatitis C Screening 11/14/2024 [...] on patient's age to complete this topic Procedures Procedure Name Priority Date/Time Associated Diagnosis Comments XR FOOT 3+ VIEWS LEFT Routine 02/18/2025 11:23 AM EDT Left foot pain from Last 3 Months Results * XR Foot 3+ Views Left (02/18/2025 11:23 AM EDT) Anatomical Region Laterality Modality Lower Extremities, Foot Left Computed Radiography Narrative 02/18/2025 12:05 PM EDT Left foot 3 views nonweightbearing:Patient with findings of enlarged bony prominence to the back of the left heel. No fractures or dislocations. Plantar spur noted. us Jerry Can DPM IMG XR PROCEDURES Final Res ult from Last 3 Months Insurance [employer] MED[employer]ARE Member Subscriber Plan / Payer (Ef fective 2019-Present) Name:AMBREEN ANTONIO Relation to Subscriber:Self Name:Ambreen Antonio Payer ID:[id number] Group ID:[id number] Type:Not on file Address: [place] [address] [place] [phone] Care Teams Credit Underwriter Relationship Specialty Start Date End Date Robb Montaño PA [address] [place] [phone] PCP - General Physician School Bus Inspector 11/13/24
[2025-03-07 16:07] VITALS: BP 0/0; PULSE 0; RESP 0; TEMP -17.7; TEMP 0; O2SAT 0
== END 2025-03-07 16:07 | disposition home or self-care (01) ==
PROVIDERS: Emergency Provider Emergency Medicine; PCP Physician Assistant
DX: S93.401A Sprain of unspecified ligament of right ankle, initial encounter (principal); W10.9XXA Fall (on) (from) unspecified stairs and steps, initial encounter; Y93.9 Activity, unspecified; Y92.9 Unspecified place or not applicable; R60.0 Localized edema; M25.571 Pain in right ankle and joints of right foot
CPT/HCPCS: 73610; 73630; 99283

== ENCOUNTER → 2025-03-07 12:28 | Outpatient (BNV) | payer OTHER, SELFPAY | PROVIDERS: Emergency Provider Emergency Medicine; PCP Physician Assistant; Visit Provider Radiology Diagnostic Radiology | DX: M25.571 Pain in right ankle and joints of right foot (principal); M79.671 Pain in right foot; M79.89 Other specified soft tissue disorders | CPT/HCPCS: 73610; 73630 ==

== ENCOUNTER 2025-04-02 08:18 | Outpatient (AMB) | payer OTHER, SELFPAY ==
--- OUTSIDE RECORDS SUMMARY | 2025-04-02 08:38 | XMS_ITS | Clinical Summary ---
Author Organization 175 [facility] Address 175 [place] [address] Phone Care Team Providers Care Vacuum Plastic Forming Machine Operator Name Role Phone Robb Montaño Primary Care Provider Allergies No known active allergies Medications No known medications Encounters Date Type Department Care Team Description 03/09/2025 10:00 AM EDT Office Visit Orthopedic [place] [address] [phone] Jerry Can DPM High ankle sprain, right, initial encounter (Primary Dx); Achilles tendinitis of left lower extremity; Bone spur of posterior portion of left calcaneus 02/18/2025 10:45 AM EDT Office Visit Orthopedic [facility] [address] [phone] Jerry Can DPM Left foot pain (Primary Dx); Achilles tendinitis of left lower extremity; Bone spur of posterior portion of left calcaneus 01/21/2025 10:45 AM EDT Consult [place] [address] [phone] Jerry Can DPM Achilles tendinitis of left [...] Orientation Not on file Plan of Treatment Health Maintenance Due Date Last Done Comments [...] Plan / Payer (Ef fective 2019-Present) Name:AMBREEN ANGLIN Relation to Subscriber:Self Name:Ambreen Anglin Payer ID:[id number] Group ID:[id number] Type:Not on file Address: [place] [address] [place] [phone] Care Teams Vacuum Plastic Forming Machine Operator Relationship Specialty Start Date End Date Robb Montaño PA [address] [place] [address] PCP - General Physician Underwriting Manager 11/13/24
[2025-04-02 08:43] VITALS: BP 110/82; PULSE 78; TEMP 36.3; O2SAT 98; BMI 36.7
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
== END 2025-04-02 09:11 | disposition home or self-care (01) ==
LOC: HO.HMCH 08:19
PROVIDERS: PCP Physician Assistant; Visit Provider Physician Assistant
DX: S93.401A Sprain of unspecified ligament of right ankle, initial encounter (principal)

== ENCOUNTER → 2025-04-02 08:18 | Outpatient (BNVA) | payer OTHER, SELFPAY | PROVIDERS: PCP Physician Assistant; Visit Provider Physician Assistant | DX: S93.401A Sprain of unspecified ligament of right ankle, initial encounter (principal); X58.XXXA Exposure to other specified factors, initial encounter; Y93.9 Activity, unspecified; Y92.9 Unspecified place or not applicable; Y99.9 Unspecified external cause status | CPT/HCPCS: 96127; 99212 ==

== ENCOUNTER 2025-05-10 16:07 | Outpatient (REF) | payer OTHER, SELFPAY ==
--- OUTSIDE RECORDS SUMMARY | 2025-05-06 08:30 | XMS_ITS ---
Author Organization [employer] STEM REPAIRER [facility] Address [address] [place] [address] Care Team Providers Care Electronic Data Processing Auditor Name Role Phone Robb Montaño Primary Care Provider Unavailab Alejandro Burrows Unavailable [phone] WORKERS, COMP Unavailable Unavailable Jada Wright Unavailable [phone] Allergies No Known Allergies REASON FOR VISIT Pain- Medical Management Medications Medication SIG (Take, Route, Fr equency, Duration) Notes Start Date End Date Status Gabapentin 100 MG 1 capsule Orally three times a day Active Ibuprofen 600 MG 1 tablet with food o r milk as needed Orally Three times a day Active Social History Tobacco Use: Social History Observation Description Date Details (start date - stop date) Never Smoker NA - NA Tobacco Control (Standard) Question Answer Notes Tobacco use: Nonsmoker Section Notes: ETOH: none Problems Problem Type SNOMED Code ICD Code Onset Dates Problem Status W/U Status Risk Notes Problem Complex regional pain syndrome, type II, upper limb (898415003) Complex regional pain syndrome type 2 of right upper extremity (G56.41) Active confirmed Vital Signs Height 65 in 05/06/2025 Weight 224 lbs 05/06/2025 BMI 37.27 kg/m2 05/06/2025 Height-cm 165.1 cm 05/06/2025 Weight-kg 101.61 kg 05/06/2025 Encounters Encounter Location Date Provider Diagnosis [facility] [address] [place] [address] 05/06/2025 Jada Wright Complex regional pain syndrome type 2 of right upper extremity G56.41 Assessments Encounter Date Diagnosis (ICD Code) Assessment Notes Treatment Notes Treatment Clinical Notes Section Notes 05/06/2025 Complex regional pain syndrome type 2 of right upper extremity (ICD-10 - G56.41) 05/06/2025 Other For the patient 's persistent pain complaints, she did work with [employer] today. She did have her device reprogram and it adjusted to be MRI compatible. She does note that the device is continues to work. She did discuss having her battery exchanged if the life of her device ends. She verbalized understanding with her significant other. She will follow-up on an as-needed basis. Plan Of Treatment Treatment Notes Assessment Notes Other For the patient's pe rsistent pain complaints, she did work with [employer] today. She did have her device reprogram and it adjusted to be MRI compatible. She does note that the device is continues to work. She did discuss having her battery exchanged if the life of her device ends. She verbalized understanding with her significant other. She will follow-up on an as-needed basis. Next Appt Details Follow Up: prn, Reason: Progress Notes * Regine ANTONIOOB:[birth year] (44 yo F)Acc No.[id number]:05/06/2025 Patient: Ricky MATTHEWhaira Provider: QUIANA STYLES :1980 A ge:44 Y S ex:Female Date:05/06/2025 Phone: Address:[address], [place], [id number] Pcp:Robb Montaño Subjective: * Chief Complaints: * P ain- Medical Management * HPI: S pine/Pain Management: Patient is a 44-year-old female previously seen in our practice in 2016 who presents for consultation and evaluation. Patient had a prior work injury on her left hand and arm that began on 12/16/2014 when she was lifting water bottles at work. As the patient lifted heavy water bottles, she noticed significant pain in her left shoulder and then approximately 2 days later she developed pain into her left arm, wrist and hand. She ultimately was diagnosed with CRPS. And underwent a spinal cord stimulator in 2016. She presents today as she is having issues with both of her feet and needs to go for MRIs. She was getting an error message when attempting to change her system to MRI compatibility. She she notes she continues gabapentin and ibuprofen by her primary care provider. She does state that her work injury case is still open. She does note several signs and symptoms consistent with CRPS including allodynia, decreased range of motion, swelling, color change, increased warmth and tremor. She denies any nail changes hair changes or sweat pattern changes. * Medical History: * Surgical History: 2 008 cholecystectomy * Hospitalization/Major Diagno stic Procedure: * Social History: T obacco Use: T obacco Control (Standard) T obacco use: N onsmoker. E CHARLIE: none. * Medications: T akingIbuprofen 600 MG Tablet 1 tablet with food or milk as needed Orally Three times a day Gabapentin 100 MG Capsule 1 capsule Orally three times a day Taking Ibuprofen 600 MG Tablet 1 tablet with food or milk as needed Orally Three times a day Taking Gabapentin 100 MG Capsule 1 capsule Orally three times a day * Allergies: N .K.D.A.no[Allergies Verified] Objective: * Vitals: P ain scale:91-10, Ht: 65 in, Wt:224lbs, BMI:37.27Index, Body Surface Area: 2.16, Wt-k.61 kg, Ht-cm: 165.1 cm. * Examination: G eneral Constitutional: P atient is alert and oriented x 3. Respirations are even and unlabored. Patient does have her left arm in a brace. She does have significant allodynia throughout her hand and wrist. She has decreased range of motion and civil cadd technician strength in her left hand. Assessment: * Assessment: 1. C omplex regional pain syndrome type 2 of right upper extremity - G56.41 (Primary) ? Plan: * Treatment: * Procedure Codes: * Follow Up: p rn * Billing Information: * Visit Code: 06878 Office Visit, New Pt., Level 3. * Procedure Codes: * Sign off status: Completed true * Provider: QUIANA STYLES Date: 2024 Generated for Amador raygoza/Lisa/Tres on: 07/11/2024 04:12 PM EST History and Physical Notes * HPI (History of Present Illness) Category Sub-Category Detail Notes Category Not es Spine/Pain Management Dhara esparza is a 44-year-old female previously seen in our practice in 2016 who presents for consultation and evaluation. Patient had a prior work injury on her left hand and arm that began on 12/16/2014 when she was lifting water bottles at work. As the patient lifted heavy water bottles, she noticed significant pain in her left shoulder and then approximately 2 days later she developed pain into her left arm, wrist and hand. She ultimately was diagnosed with CRPS. And underwent a spinal cord stimulator in 2016. She presents today as she is having issues with both of her feet and needs to go for MRIs. She was getting an error message when attempting to change her system to MRI compatibility. She she notes she continues gabapentin and ibuprofen by her primary care provider. She does state that her work injury case is still open. She does note several signs and symptoms consistent with CRPS including allodynia, decreased range of motion, swelling, color change, increased warmth and tremor. She denies any nail changes hair changes or sweat pattern changes. Examination Category Sub-Category Detail Notes Category Not es General Constitutional Shana nt is alert and oriented x 3. Respirations are even and unlabored. Patient does have her left arm in a brace. She does have significant allodynia throughout her hand and wrist. She has decreased range of motion and civil cadd technician strength in her left hand.
--- NOTE | ~2025-05-10 | MR_ITS ---
EXAMINATION: MR ANKLE WITHOUT CONTRAST, RIGHT CLINICAL INFORMATION: Ankle injury, pain, swelling. Patient reports injury February 2025, COMPARISON: None available. TECHNIQUE: MRI of the ankle was performed using routine sequences on a high-field scanner. FINDINGS: BONE/JOINTS: Subchondral edema in the medial talar dome measuring 6 x 10 mm at the articular surface could reflect sequela of degeneration versus osteochondral lesion. No loose or unstable osteochondral fragments are seen. Small ossific fragment, seen distal to the fibula has mild T2 signal within it, suggestive of age-indeterminate fracture. No acute fractures otherwise seen. Small talocrural and talonavicular joint effusion. MUSCLES/TENDONS: Mild posterior tibial tenosynovitis. Medial flexor tendons intact. Mild peroneus longus and peroneus brevis peritendinitis/tenosynovitis. Intact extensor tendons. LIGAMENTS: Grade 2 sprain/partial tear of the ATFL. Mild sprain posterior talofibular ligament. Tibiofibular, calcaneofibular, deltoid ligaments are intact. ACHILLES TENDON: Mild distal Achilles tendinosis. Small thin linear longitudinally oriented, intrasubstance tears versus physiological variant striations. There is insertional enthesopathy present.. PLANTAR FASCIA: Intact. SINUS TARSI: Normal signal. TARSAL TUNNEL: No mass lesion. SUBCUTANEOUS SOFT TISSUES: Lateral soft tissue swelling and subcutaneous edema. MR/MR ankle RT wo con IMPRESSION: 1. Medial talar dome subchondral edema measuring 6 x 10 mm, could reflect osteochondral lesion versus sequela of degeneration. No loose unstable osteochondral fragments are seen. 2. Small ossific fragment seen distal to the fibula, has mild T2 signal within it, suggestive of age-indeterminate fracture. Clinically correlate. 3. Small talocrural and talonavicular joint effusions. 4. Mild posterior tibial tenosynovitis. Mild peroneus longus and peroneus brevis peritendinitis/tenosynovitis. 5. ATFL grade 2 sprain/partial tear. Mild sprain posterior talofibular ligament. 6. Mild Achilles tendinosis. Physiological variant striations versus small thin linear longitudinally oriented intrasubstance tears. 7. Lateral ankle soft tissue swelling and subcutaneous edema. Electronically signed by: Shekhar Morocho MD 05/12/2025 11:40 AM [facility]
--- OUTSIDE RECORDS SUMMARY | 2025-05-10 16:12 | XMS_ITS | Clinical Summary ---
Author Organization 175 [facility] Address [address] [place] [address] Phone Care Team Providers Care Streetcar Repairer Helper Name Role Phone Robb Montaño Primary Care Provider Allergies No known active allergies Medications No known medications Encounters Date Type Department Care Team Description 03/09/2025 10:00 AM EDT Office Visit Orthopedic [facility] [address] [phone] Jerry Can DPM High ankle sprain, right, initial encounter (Primary Dx); Achilles tendinitis of left lower extremity; Bone spur of posterior portion of left calcaneus 02/18/2025 10:45 AM EDT Office Visit [facility]opedic [facility] [address] [phone] Jerry Can DPM Left foot pain (Primary [...] Influencers of Health Screening 11/14/2024 COVID-19 Vaccine (2024-2 6 season) 2025 11/09/2020, 10/19/2020 Influenza Vaccine [...] ID:[id number] Group ID:[id number] Type:Not on file Address: [place] [address] [place] [id number] Care Teams Streetcar Repairer Helper Relationship Specialty Start Date End Date Robb Montaño PA [address] [place] [phone] PCP - General Physician Negotiator 11/13/24
--- OUTSIDE RECORDS SUMMARY | 2025-05-10 16:12 | XMS_ITS | Patient Health Record ---
Author Organization [employer] SUPPORT CONSULTANT [employer] [facility] Address [address] [facility] [place] [address] Care Team Providers Care Nurse Practitioner Physician Assistant Name Role Phone Robb Montaño Primary Care Provider Unavailab Alejandro Burrows Unavailable [phone] WORKERS, COMP Unavailable Unavailable Jada Wright Unavailable [phone] Allergies No Known Allergies Reason For Referral No Information Medications Medication SIG (Take, Route, Fr equency, [...] regional pain syndrome, type II, upper limb ([id number]) Complex regional pain syndrome type 2 of right upper extremity (G56.41) Active confirmed Vital Signs Height-cm 165.1 cm 05/06/2025 Weight-kg 101.61 kg 05/06/2025 Height 65 in 05/06/2025 Weight 224 lbs 05/06/2025 BMI 37.27 kg/m2 05/06/2025 Encounters Encounter Location Date Provider Diagnosis [facility] [place] [address] [place] [address] 05/06/2025 Jada Wright Complex regional pain syndrome [...] on an as-needed basis. Plan Of Treatment No Information Insurance Providers Payer Name Payer Address Payer Phone Subscriber Number Group Number Insured Name Patient Relationship to Insured Coverage Start Date Coverage End Date [facility] [address] [address] [place] [address] [id number] Ambreen Anglin Self - patient is the insured Medical (General) History Medical History History ICD Code Permanent implantation of ce rvical spinal cord stimulator trial with [employer] by Dr. Bassett on 05/08/2016. Surgical History Surgery Date(Month/Year) 2007 cholecystectomy
== END 2025-05-10 16:08 | disposition home or self-care (01) ==
LOC: HO.MRI 16:07
PROVIDERS: PCP Physician Assistant; Visit Provider Physician Assistant
DX: S93.401A Sprain of unspecified ligament of right ankle, initial encounter (principal)
CPT/HCPCS: 73721

== ENCOUNTER → 2025-05-10 16:07 | Outpatient (BNV) | payer OTHER, SELFPAY | PROVIDERS: PCP Physician Assistant; Visit Provider Radiology Diagnostic Ultrasound | DX: S93.401A Sprain of unspecified ligament of right ankle, initial encounter (principal); M65.871 Other synovitis and tenosynovitis, right ankle and foot; M25.471 Effusion, right ankle | CPT/HCPCS: 73721 ==

== ENCOUNTER 2025-05-12 10:28 | Outpatient (REF) | payer OTHER, SELFPAY ==
--- OUTSIDE RECORDS SUMMARY | 2025-05-12 11:42 | XMS_ITS | Patient Health Record ---
Author Organization [employer] [facility] Address [address] [facility] [address] [place] [address] Care Team Providers Care Mr Teacher Name Role Phone Robb Montaño Primary Care Provider Unavailab Alejandro Burrows Unavailable [phone] WORKERS, COMP Unavailable Unavailable Jada Wright Unavailable [phone] Allergies No Known Allergies Reason For Referral [...] regional pain syndrome, type II, upper limb ([id number]) Complex regional pain syndrome type 2 of right upper extremity (G56.41) Active confirmed Vital Signs Height-cm 165.1 cm 05/06/2025 Weight-kg 101.61 kg 05/06/2025 Height 65 in 05/06/2025 Weight 224 lbs 05/06/2025 BMI 37.27 kg/m2 05/06/2025 Encounters Encounter Location Date Provider Diagnosis [facility] [place] [address] [place] [address] 05/06/2025 Jada Wright Complex regional pain syndrome [...] Insured Coverage Start Date Coverage End Date [facility] [address] [facility] [place] [address] [id number] Ambreen Anglin Self - patient is the insured Medical (General) History Medical History History ICD Code Permanent implantation of ce rvical spinal cord stimulator trial with [employer] by Dr. Bassett on 05/08/2016. Surgical History Surgery Date(Month/Year) 2007 cholecystectomy
--- OUTSIDE RECORDS SUMMARY | 2025-05-12 11:42 | XMS_ITS | Clinical Summary ---
Author Organization [address] [facility] Address [address] [place] [address] Phone Care Team Providers Care Manager Of Corporate Communications Name Role Phone Robb Montaño Primary Care Provider Allergies No known active allergies Medications No known medications Encounters Date Type Department Care Team Description 03/09/2025 10:00 AM EDT Office Visit [facility] [address] [phone] Jerry Can DPM High ankle sprain, right, initial encounter (Primary Dx); Achilles tendinitis of left lower extremity; Bone spur of posterior portion of left calcaneus 02/18/2025 10:45 AM EDT Office Visit [facility] [address] [phone] Jerry Can DPM Left foot pain (Primary [...] ID:[id number] Group ID:[id number] Type:Not on file Address: [place] [address] [place] [address] Care Teams Manager Of Corporate Communications Relationship Specialty Start Date End Date Robb Montaño PA [address] [place] [phone] PCP - General Physician Alteration Tailor 11/13/24
== END 2025-05-12 10:29 | disposition home or self-care (01) ==
LOC: HO.MAMMO 10:28
PROVIDERS: PCP Physician Assistant; Visit Provider Physician Assistant
DX: Z12.31 Encounter for screening mammogram for malignant neoplasm of breast (principal)
CPT/HCPCS: 77063; 77067

== ENCOUNTER → 2025-05-12 10:45 | Outpatient (BNV) | payer OTHER, SELFPAY | PROVIDERS: PCP Physician Assistant; Visit Provider Internal Medicine | DX: Z12.31 Encounter for screening mammogram for malignant neoplasm of breast (principal) | CPT/HCPCS: 77063; 77067 ==

== ENCOUNTER 2025-05-15 09:49 | Outpatient (REF) | payer OTHER, SELFPAY | END 2025-05-15 09:50 | disposition home or self-care (01) | LOC: HO.LNP 09:49 | PROVIDERS: PCP Physician Assistant; Visit Provider Advanced Practice Midwife | DX: Z01.419 Encounter for gynecological examination (general) (routine) without abnormal findings (principal); Z12.39 Encounter for other screening for malignant neoplasm of breast; Z97.5 Presence of (intrauterine) contraceptive device; Z98.51 Tubal ligation status | CPT/HCPCS: 87626; 88175 ==

== ENCOUNTER 2025-05-15 09:49 | Outpatient (AMB) | payer OTHER, SELFPAY ==
--- OUTSIDE RECORDS SUMMARY | 2025-05-15 09:53 | XMS_ITS | Patient Health Record ---
Author Organization [employer] MECHANIC'S ASSISTANT [employer] [facility] Address [address] [facility] [address] [place] [address] Care Team Providers Care Horser Up Name Role Phone Robb Montaño Primary Care Provider Unavailab Alejandro Burrows Unavailable [phone] WORKERS, COMP Unavailable Unavailable Jada Wright Unavailable [phone] Allergies No Known Allergies Reason For Referral [...] regional pain syndrome, type II, upper limb ([id number]) Complex regional pain syndrome type 2 of right upper extremity (G56.41) Active confirmed Vital Signs Height-cm 165.1 cm 05/06/2025 Weight-kg 101.61 kg 05/06/2025 Height 65 in 05/06/2025 Weight 224 lbs 05/06/2025 BMI 37.27 kg/m2 05/06/2025 Encounters Encounter Location Date Provider Diagnosis [facility] [place] [address] [place] [address] 05/06/2025 Jada Wright Complex regional pain syndrome [...] Insured Coverage Start Date Coverage End Date [facility] [address] [address] [facility] [place] [address] [id number] Ambreen Anglin Self - patient is the insured Medical (General) History Medical History History ICD Code Permanent implantation of ce rvical spinal cord stimulator trial with [employer] by Dr. Bassett on 05/08/2016. Surgical History Surgery Date(Month/Year) 2007 cholecystectomy
--- OUTSIDE RECORDS SUMMARY | 2025-05-15 09:53 | XMS_ITS | Clinical Summary ---
Author Organization [address] [facility] Address [address] [place] [address] Phone Care Team Providers Care Senior Finance Manager Name Role Phone Robb Montaño Primary Care Provider [phone] Allergies No known active allergies Medications No known medications Encounters Date Type Department Care Team Description 03/09/2025 10:00 AM EDT Office Visit [facility] [address] [phone] Jerry Can DPM High ankle sprain, right, initial encounter (Primary Dx); Achilles tendinitis of left lower extremity; Bone spur of posterior portion of left calcaneus 02/18/2025 10:45 AM EDT Office Visit [facility] [address] [phone] Jerry Can DPM Left foot pain (Primary [...] ID:[id number] Group ID:[id number] Type:Not on file Address: [place] [address] [place] [address] Care Teams Senior Finance Manager Relationship Specialty Start Date End Date Robb Montaño PA [address] [place] [phone] PCP - General Physician Diplomatic Interpreter 11/13/24
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
[2025-05-15 10:01] VITALS: BP 108/76; BMI 37.1
== END 2025-05-15 11:48 | disposition home or self-care (01) ==
LOC: HO.HWS 09:49
PROVIDERS: PCP Physician Assistant; Visit Provider Advanced Practice Midwife
DX: Z01.419 Encounter for gynecological examination (general) (routine) without abnormal findings (principal); Z12.39 Encounter for other screening for malignant neoplasm of breast; Z12.4 Encounter for screening for malignant neoplasm of cervix; Z97.5 Presence of (intrauterine) contraceptive device
CPT/HCPCS: 99396; 99459